=== PATIENT | female | born 1965 | race American Indian/Alaskan Native ===

== ENCOUNTER 2018-07-22 16:45 | Emergency (ER) | payer MEDICAID ==
--- NOTE | 2018-07-22 17:15 | Emergency Department Report ---
Blank Doc - Documentation Documentation: 52 yo with a hx of DM and CHF presents with fatigue, weakness and feeling faint x yesterday states she wants to be evaluated, states she takes her meds regularly and nml diet denies chesst pain, sob PLANS labs REevaluate
[2018-07-22 18:08] LABS: Bacteria,Urine 1+ /HPF (Negative); Bilirubin,Urine NEG (Negative); Blood,Urine SM (Negative); Color,Urine Straw (Yellow); Mucus,Urine FEW /HPF; Protein,Urine <15 mg/dL mg/dL (Negative); Urobilinogen,Urine < 2.0 mg/dL (<2.0)
[2018-07-22 18:17] LABS: BUN/Creatinine Ratio 18; Blood Urea Nitrogen 14 mg/dL (7-17); Calcium 9.1 mg/dL (8.4-10.2); Hemolysis Index 36
[2018-07-22 18:31] LABS: Hematocrit 39.3 % (30.3-42.9); Hemoglobin 13.1 gm/dl (10.1-14.3); Mean Corpuscular HGB Conc 33 % (30-34); Mean Corpuscular Volume 93 fl (79-97); Platelet Count 247 K/mm3 (140-440); Red Blood Count 4.24 M/mm3 (3.65-5.03); Red Cell Distribution Width 14.3 % (13.2-15.2)
[2018-07-22 18:38] LABS: Lymphocytes % (Auto) 24.4 % (13.4-35.0)
[2018-07-22 18:39] LABS: Basophils % (Auto) 0.7 % (0.0-1.8); Eosinophils # (Auto) 0.1 K/mm3 (0.0-0.4); Eosinophils % (Auto) 2.2 % (0.0-4.3); Monocytes # (Auto) 0.3 K/mm3 (0.0-0.8); Monocytes % (Auto) 6.3 % (0.0-7.3)
[2018-07-22 18:40] LABS: Mean Platelet Volume 7.4 fl (6-12)
--- NOTE | 2018-07-22 18:56 | Cat Scan Report ---
FINAL REPORT EXAM: CT HEAD/BRAIN WO CON HISTORY: weakness TECHNIQUE: CT head without contrast PRIORS: None. FINDINGS: No acute intra-axial or extra-axial hemorrhage is identified. There is no evidence of midline shift or mass effect. The ventricles and sulci are within normal limits. Gabriel-white matter differentiation is intact. Focal hypodensity posterior medial left lobe of the cerebellum noted. This could reflect remote ische zaida change however nonspecific in appearance on noncontrast CT suggest further evaluation with MRI if continued concern. Bony calvarium is grossly intact. Visualized portions of the mastoids and paranasal sinuses are unre markable. IMPRESSION: Focal hypodensity left lobe of the cerebellum. This may reflect remote posttraumatic or ischemic apple ge however nonspecific in appearance. If clinical concern suggest further evaluation with MRI
[2018-07-22 23:42] VITALS: BP 124/79
--- NOTE | 2018-07-23 02:41 | Emergency Department Report ---
ED General Adult HPI - General Chief complaint: Weakness Stated complaint: WEAKNESS Time Seen by Provider: 07/22/18 17:09 Source: patient Mode of arrival: Ambulatory Limitations: No Limitations - History of Present Illness Initial comments: Ms. Ho is a 2-year-old -[place] female with a past medical history of CAD, hypertension, CHF, TIA/CVA presents to the emergency department complaining of feeling a little bit "off"over the past couple days. States today she was recently started on some medications to help with her current medical problem list. She is supposed to be taken of isosorbide mononitrate along with a couple other medications which she is not quite been taking them as prescribed. She is not sure if she needs them. Oropharynx or they might be contributing to her feeling. She reports no chest pain, palpitations, shortness of breath, headache, presyncope, but has been having some vague weakness and also some on associated episodes of presyncope Radiation: non-radiation Severity scale (0 -10): 0 Consistency: intermittent Improves with: none Worsens with: none Associated Symptoms: malaise, weakness. denies: confusion, chest pain, cough, diaphoresis, loss of appetite, shortness of breath, syncope Treatments Prior to Arrival: none - Related Data Allergies Allergy/AdvReac Type Severity Reaction Status Date / Time No Known Allergies Allergy Verified 07/22/18 17:09 ED Review of Systems ROS: Stated complaint: WEAKNESS Other details as noted in HPI Constitutional: denies: chills, fever Eyes: denies: eye pain, eye discharge, vision change ENT: denies: ear pain, throat pain Respiratory: denies: cough, shortness of breath, wheezing Cardiovascular: denies: chest pain, palpitations Endocrine: no symptoms reported Gastrointestinal: denies: abdominal pain, nausea, diarrhea Genitourinary: denies: urgency, dysuria, discharge Musculoskeletal: denies: back pain, joint swelling, arthralgia Skin: denies: rash, lesions Neurological: denies: headache, weakness, paresthesias Psychiatric: denies: anxiety, depression Hematological/Lymphatic: denies: easy bleeding, easy bruising ED Past Medical Hx - Past Medical History Previous Medical History?: Yes Hx Hypertension: Yes Hx Congestive Heart Failure: Yes Hx Diabetes: Yes - Surgical History Hx Coronary Stent: Yes - Social History Smoking Status: Never Smoker Substance Use Type: Alcohol ED Physical Exam - General Limitations: No Limitations General appearance: alert, in no apparent distress - Head Head exam: Present: atraumatic, normocephalic - Eye Eye exam: Present: normal appearance, PERRL, EOMI Pupils: Present: normal accommodation - ENT ENT exam: Present: normal exam, mucous membranes moist, TM's normal bilaterally - Neck Neck exam: Present: normal inspection, full ROM - Respiratory Respiratory exam: Present: normal lung sounds bilaterally. Absent: respiratory distress - Cardiovascular Cardiovascular Exam: Present: regular rate, normal rhythm. Absent: systolic murmur, diastolic murmur, rubs, gallop - GI/Abdominal GI/Abdominal exam: Present: soft, normal bowel sounds. Absent: tenderness, guarding - Extremities Exam Extremities exam: Present: normal inspection, full ROM, normal capillary refill - Back Exam Back exam: Present: normal inspection - Neurological Exam Neurological exam: Present: alert, oriented X3, CN II-XII intact, normal gait. Absent: abnormal gait (patient gait is coordinated and smooth) - Psychiatric Psychiatric exam: Present: normal affect, normal mood - Skin Skin exam: Present: warm, dry, intact, normal color. Absent: rash ED Course Vital Signs 07/22/18 07/22/18 07/22/18 17:10 23:41 23:42 Temperature 97.7 F 97.5 F L Pulse Rate 81 61 Respiratory 16 20 20 Rate Blood Pressure 124/82 Blood Pressure 124/79 [Left] O2 Sat by Pulse 99 100 Oximetry ED Medical Decision Making - Lab Data Result diagrams: 07/22/18 18:21 07/22/18 17:38 - EKG Data EKG shows normal: sinus rhythm Rate: normal - EKG Data When compared to previous EKG there are: previous EKG unavailable Interpretation: nonspecific ST-T wave desiree - Medical Decision Making 2-year-old -[place] female with pre-existing CAD/CVA and diabetes on Carlo Clayton adjusted medication may be having an issue equilibrating or or adj usting. Weakness may be related to the polypharmacy does not appear to have any worsening CHF or any active acute coronary syndrome at this present time. She is awake and alert. She is ambulatory. No signs of distress or no signs of any coordination issues. Critical care attestation.: If time is entered above; I have spent that time in minutes in the direct care of this critically ill patient, excluding procedure time. ED Disposition Clinical Impression: Weakness Disposition: DC-01 TO HOME OR SELFCARE Is pt being admited?: No Does the pt Need Aspirin: No Condition: Stable Instructions: Weakness (ED) Additional Instructions: Return to emergency department. She responds any fever, chest pain, shortness of breath, abdominal pain or any suggestion that her symptoms are worsening Referrals: JULIANNE BARBA [Other] - 3-5 Days
== END 2018-07-23 02:58 | disposition home or self-care (01) ==
LOC: ED 16:45
DX: R53.1 Weakness (principal); I11.0 Hypertensive heart disease with heart failure; E11.9 Type 2 diabetes mellitus without complications; Z95.1 Presence of aortocoronary bypass graft
CPT/HCPCS: 36415; 70450; 80048; 81001; 82962; 85025; 93005; 93010; 99284